=== PATIENT | male | born 1955 | race Caucasian/White ===

== ENCOUNTER → 2022-06-18 | Outpatient (CLI) | payer MEDICARE, OTHER ==
[~2022-06-18] MED LIST: ADV100INH INH; AMAR1TAB PO; AMLO-605 PO; AMLO10TA PO; ASPI81TA86 PO; CARV3.12 PO; CORE25TA PO; CRES10TA PO; CRES20TA2 PO; DOXA1TAB40 PO; FISH100049 PO; GLIM4TAB5 PO; INSULANT SC; IRON65TA PO; ISOS1TAB35 PO; JANU50TA8 PO; LEVA750T7 PO; LORT5TAB PO; LOSA50TA28 PO; MAGN400C2 PO; METF500T13 PO; METO100T5 PO; MILK120011 PO; MIRA3350 PO; NEXI40CA PO; NITR4TASL SL; PERCOCET PO; SENO8.6T5 PO; TORS100T PO; TYLE325T5 PO; VIST25CA PO; VITMTA PO; WARF-21 PO; WARF-22 PO
== END ==
LOC: M RAD 08:09
PROVIDERS: ATTEND Internal Medicine Hematology
DX: Z13.6 Encounter for screening for cardiovascular disorders (principal)

== ENCOUNTER → 2022-07-13 | Outpatient (CLI) | payer MEDICARE, OTHER | LOC: M RAD 08:43 | PROVIDERS: ATTEND Internal Medicine Hematology | DX: Z12.2 Encounter for screening for malignant neoplasm of respiratory organs (principal); Z87.891 Personal history of nicotine dependence ==

== ENCOUNTER → 2023-05-07 | Outpatient (CLI) | payer MEDICARE, OTHER | LOC: M RAD 09:19 | PROVIDERS: ATTEND Internal Medicine Hematology | DX: Z87.891 Personal history of nicotine dependence (principal) ==

== ENCOUNTER → 2023-05-21 | Outpatient (CLI) | payer MEDICARE, OTHER | LOC: M RAD 08:25 | PROVIDERS: ATTEND Internal Medicine Hematology | DX: I71.40 Abdominal aortic aneurysm, without rupture, unspecified (principal) ==

== ENCOUNTER → 2023-11-26 | Outpatient (CLI) | payer MEDICARE, OTHER | LOC: M RAD 15:37 | PROVIDERS: ATTEND Physician Assistant Medical | DX: N40.0 Benign prostatic hyperplasia without lower urinary tract symptoms (principal); R33.9 Retention of urine, unspecified; Z90.49 Acquired absence of other specified parts of digestive tract ==

== ENCOUNTER → 2023-11-26 | Outpatient (CLI) | payer MEDICARE, OTHER ==
[2023-11-26 17:55] LABS: APPEARANCE, URINE CLOUDY (CLEAR); BACTERIA, URINE AUTO NEGATIVE (NEGATIVE); BASO # 0.1 10^3/uL (0.0-0.2); BASO % 0.8 % (0.0-1.0); BILIRUBIN, URINE AUTO NEGATIVE (NEGATIVE); BLOOD, URINE BLOOD 1+ (NEGATIVE); COLOR, URINE YELLOW (YELLOW); EOS # 0.8 10^3/uL (0.0-0.5); EOS % 10.2 % (0.0-3.0); GLUCOSE, URINE (UA) AUTO NEGATIVE (NEGATIVE); HEMATOCRIT 37.6 % (42.0-52.0); HEMOGLOBIN 11.4 g/dl (13.5-17.5); KETONE, URINE AUTO NEGATIVE (NEGATIVE); LEUKOCYTE ESTERASE, URINE AUTO 3+ (NEGATIVE); LYMPH # 2.4 10^3/uL (1.5-5.0); LYMPH % 31.7 % (24.0-44.0); MEAN CORPUSCULAR HEMOGLOBIN 28.4 pg (27.0-33.0); MEAN CORPUSCULAR HGB CONC 30.3 g/dl (32.0-36.5); MEAN CORPUSCULAR VOLUME 93.5 fl (80.0-96.0); MONO # 0.6 10^3/uL (0.0-0.8); MONO % 7.7 % (2.0-8.0); NEUTROPHILS # 3.7 10^3/uL (1.5-8.5); NEUTROPHILS % 49.5 % (36.0-66.0); NITRITE, URINE AUTO NEGATIVE (NEGATIVE); PLATELET COUNT, AUTOMATED 279 10^3/uL (150-450); PROTEIN, URINE AUTO 1+ mg/dL (NEGATIVE); RBC, URINE AUTO 12 /HPF (0-3); RED BLOOD COUNT 4.02 10^6/uL (4.30-6.10); SPECIFIC GRAVITY URINE AUTO 1.014 (1.002-1.035); SQUAMOUS EPITHELIAL CELL UR AU 0 /HPF (0-6); UROBILINOGEN, URINE AUTO 0.2 mg/dL (0.0-2.0); WBC, URINE AUTO TNTC /HPF (0-3); WHITE BLOOD COUNT 7.4 10^3/uL (4.0-10.0)
[2023-11-26 18:13] LABS: ALBUMIN 2.9 G/DL (3.2-5.2); ALKALINE PHOSPHATASE 77 U/L (46-116); ALT/SGPT 20 U/L (7.0-40); AST/SGOT 11 U/L (<34); BILIRUBIN,TOTAL 0.2 MG/DL (0.3-1.2); BLOOD UREA NITROGEN 26 MG/DL (9-23); CALCIUM LEVEL 8.8 MG/DL (8.3-10.6); CARBON DIOXIDE LEVEL 28 MMOL/L (20-31); CHLORIDE LEVEL 109 MMOL/L (98-107); CREATININE FOR GFR 0.94 MG/DL (0.70-1.30); GLOMERULAR FILTRATION RATE > 60.0 (>49); GLUCOSE, FASTING 69 MG/DL (74-106); POTASSIUM SERUM 4.7 MMOL/L (3.5-5.1); SODIUM LEVEL 141 MMOL/L (136-145)
== END ==
LOC: M PLALAB 14:27
PROVIDERS: ATTEND Physician Assistant Medical
DX: R33.9 Retention of urine, unspecified (principal)

== ENCOUNTER → 2025-06-28 | Outpatient (REF) | payer MEDICARE, OTHER ==
[~2025-06-28] MED LIST changes: -ADV100INH INH; +ADVA1AER8 INH; +AMLO-751 PO; -AMLO10TA PO; +SENN-225 PO; -SENO8.6T5 PO
[2025-06-28 17:41] LABS: APPEARANCE, URINE CLOUDY (CLEAR); BACTERIA, URINE AUTO 1+ (NEGATIVE); BILIRUBIN, URINE AUTO NEGATIVE (NEGATIVE); BLOOD, URINE BLOOD 1+ (NEGATIVE); GLUCOSE, URINE (UA) AUTO NEGATIVE (NEGATIVE); KETONE, URINE AUTO NEGATIVE (NEGATIVE); LEUKOCYTE ESTERASE, URINE AUTO 2+ (NEGATIVE); MUCUS, URINE SMALL (NEGATIVE); NITRITE, URINE AUTO NEGATIVE (NEGATIVE); PROTEIN, URINE AUTO 1+ mg/dL (NEGATIVE); RBC, URINE AUTO 14 /HPF (0-3); SPECIFIC GRAVITY URINE AUTO 1.011 (1.002-1.035); SQUAMOUS EPITHELIAL CELL UR AU 0 /HPF (0-6); UROBILINOGEN, URINE AUTO 0.2 mg/dL (0.0-2.0); WBC, URINE AUTO TNTC /HPF (0-3)
== END ==
LOC: M SFHCPLAZ 16:43
DX: R30.0 Dysuria (principal)